=== PATIENT | male | born 1990 | race Caucasian/White ===

== ENCOUNTER 2018-09-29 20:38 | Emergency (ER) | payer OTHER ==
[~2018-09-29] VITALS: Ht 167.6 cm; Wt 113.4 kg
[2018-09-29 20:41] VITALS: BP_SYST 160
--- NOTE | 2018-09-29 20:45 | NUR ---
Patient to ER bed 3 to gown for evaluation. Side rails up.
--- NOTE | 2018-09-29 20:50 | NUR ---
Pt BIB BLS C/O general tingling after smoking marijuana for the 1st time. Pt states he smoked 1.5 Marijuana cigarettes this evening and began feeling tingling over his whole body and paranoia. Denies any chest pain, shortness of breath, N/V, or any other symptoms at this time. Will continue to monitor.
--- NOTE | 2018-09-29 21:08 | NUR ---
ER Dr. Iniguez at bedside examining patient.
[2018-09-29 21:33] VITALS: BP_SYST 135
--- NOTE | 2018-09-29 21:33 | NUR ---
Patient given written and verbal discharge instructions and verbalizes understanding. ER MD discussed with patient the results and treatment provided. Patient in stable condition. ID arm band removed. Patient educated on pain management and to follow up with PMD. Pain Scale 0. Opportunity for questions provided and answered. Medication side effect fact sheet provided.
== END 2018-09-29 21:33 | disposition home or self-care (01) ==
LOC: SED 20:38
DX: F12.229 Cannabis dependence with intoxication, unspecified (principal); R03.0 Elevated blood-pressure reading, without diagnosis of hypertension
CPT/HCPCS: 99283